=== PATIENT | male | born 1940 | race Caucasian/White ===

== ENCOUNTER 2018-04-26 08:40 | Day surgery (SDC) | payer MEDICARE ==
[2018-04-26] VITALS (9 sets, daily range): BP systolic 115–137; BP diastolic 56–85
[~2018-04-26] VITALS: Ht 193 cm; Wt 88.6 kg
[2018-04-26] MEDS ORDERED: CYAN-19 PO (09:13)
[2018-04-26] MEDS ORDERED: DABI150C PO (09:13)
[2018-04-26] MEDS ORDERED: CHOL10002 PO (09:13)
[2018-04-26] MEDS ORDERED: METO50TA7 PO (09:13)
[2018-04-26] MEDS ORDERED: DIGO125T PO (09:13)
[2018-04-26] MEDS ORDERED: diphenhydrAMINE 25mg capsule PO PRN (09:20)
[2018-04-26] MEDS ORDERED: sod bicarbonate 150mEq in D5W 1,150 ML IV ONE (09:20)
[2018-04-26 09:55] LABS: BASOPHILS % (AUTO) 0.5 % (0-1); EOSINOPHILS # (AUTO) 0.3 X10'3 (0-0.9); EOSINOPHILS % (AUTO) 3.2 % (0-6); HEMATOCRIT 47.6 % (42.0-52.0); HEMOGLOBIN 15.6 g/dl (14.0-17.9); LYMPHOCYTES # (AUTO) 2.2 X10'3 (1.1-4.8); MEAN CORPUSCULAR HEMOGLOBIN 31.7 PG (27.0-31.0); MEAN CORPUSCULAR HGB CONC 32.8 g/dL (33.0-36.5); MEAN CORPUSCULAR VOLUME 96.6 FL (78-98); MEAN PLATELET VOLUME 8.9 FL (7.4-10.4); MONOCYTES # (AUTO) 0.7 X10'3 (0-0.9); MONOCYTES % (AUTO) 8.4 % (2-12); NEUTROPHILS # (AUTO) 5.5 X10'3 (1.8-7.7); NEUTROPHILS % (AUTO) 62.9 % (42-75); PLATELET COUNT 184 X10'3 (140-440); RED BLOOD COUNT 4.92 X10'6 (4.70-6.10); RED CELL DISTRIBUTION WIDTH 13.6 % (11.5-14.5); WHITE BLOOD COUNT 8.8 X10'3 (4.5-11.0)
[2018-04-26 10:05] LABS: ALBUMIN 3.2 G/DL (3.4-5.0); ANION GAP 7 (8-16); BLOOD UREA NITROGEN 23 MG/DL (7-18); BUN/CREATININE RATIO 22.1 (5.4-32.0); CALCIUM 8.4 MG/DL (8.5-10.1); CHLORIDE 107 MMOL/L (99-107); CREATININE 1.04 MG/DL (0.60-1.10); GLUCOSE 96 MG/DL (70-104); SODIUM 140 MMOL/L (135-145); TOTAL CARBON DIOXIDE 26.3 MMOL/L (24-32); eGFR 69 ML/MIN
[2018-04-26 10:10] LABS: INR 1.1 INR
[2018-04-26] MEDS ORDERED: midazolam 2 mg/2 ml injection ONE ×2 (10:29→10:59)
[2018-04-26] MEDS ORDERED: iohexol 350 MG/ML 50ML vial IV ONE (10:30)
[2018-04-26] MEDS ORDERED: LIDOcaine 1% (10mg/ml)w/preservative injection 20ml MDV ONE (10:30)
[2018-04-26] MEDS ORDERED: iohexol 350MG/ML 100ml bottle IV ONE (10:30)
[2018-04-26] MEDS ORDERED: fentaNYL/PF 50MCG/1 ML 2ML syringe ONE (10:30)
== END 2018-04-26 14:20 | disposition home or self-care (01) ==
LOC: SSTAY O 08:40
PROVIDERS: ATTEND Internal Medicine Cardiovascular Disease
DX: I42.8 Other cardiomyopathies (principal); I48.1 Persistent atrial fibrillation; E78.5 Hyperlipidemia, unspecified; I48.91 Unspecified atrial fibrillation; Z98.890 Other specified postprocedural states; Z88.8 Allergy status to other drugs, medicaments and biological substances; Z79.899 Other long term (current) drug therapy
CPT/HCPCS: 36415; 80048; 83735; 85025; 85610; 93005; 93458; 99152; 99153; J1644; J2001; J2250; J3010; Q0163; Q9967; A4620; C1760; C1769; C1894